=== PATIENT | male | born 1955 | race Caucasian/White ===

== ENCOUNTER → 2017-04-22 | Outpatient (CLI) | payer MEDICARE, MEDICAID ==
[~2017-04-22] MED LIST: LYRICA 25MG CAP25 MG; MOBIC7.5 MG; PERCOCET 7.5-31 EACH PO; SYMBICORT 80-10.2 GM; TYLENOL325 MG
== END | disposition disaster alternative care site (69) ==
LOC: GRAD 12:00
DX: R41.3 Other amnesia (principal); R20.0 Anesthesia of skin; V49.9XXA Car occupant (driver) (passenger) injured in unspecified traffic accident, initial encounter

== ENCOUNTER → 2017-05-04 | Outpatient (CLI) | payer MEDICARE, MEDICAID | END | disposition disaster alternative care site (69) | LOC: GRAD 10:56 | DX: B19.20 Unspecified viral hepatitis C without hepatic coma (principal) ==